=== PATIENT | female | born 1945 | race Caucasian/White ===

== ENCOUNTER 2021-01-02 13:33 | Inpatient (IN) ==
[2021-01-02] MEDS ORDERED: SODIUM CHLORIDE 0.9% 1,000 ML IV STA ×2 (15:07→18:09)
[2021-01-02 15:29] LABS: Basophils % 0.1 % (0.0-0.8); Hematocrit 40.1 VOL% (35.7-47.0); Hemoglobin 13.4 GM/DL (12.0-16.0); Immature Granulocytes % 0.7 %; Immature Granulocytes Absolute 0.14 #; Lymphocytes # 0.6 10*3/uL (1.4-4.0); Lymphocytes % 2.8 % (21.3-54.2); Mean Corpuscular HGB Conc 33.4 GM/DL (32-36); Mean Corpuscular Volume 100.3 FL (87-102); Mean Platelet Volume 13.1 FL (9.6-12.0); Neutrophils % 92.4 % (38.7-73.9); Platelet Count 158 T/CUMM (130-400); Red Cell Distribution Width 14.8 % (9.3-17.3); White Blood Count 20.6 T/CUMM (4-12)
[2021-01-02 15:41] LABS: PT Patient Result 21.2 SECS (10.5-12.0)
[2021-01-02 15:57] LABS: Bilirubin,Total 0.4 MG/DL (0.20-1.00); Osmolality,Calculated 293.8 MOS/KG (273-304); Potassium 3.4 MMOL/L (3.5-5.1); Thyroid Stimulating Hormone 1.48 uIU/ml (0.358-3.74); Total Protein 7.3 G/DL (6.4-8.2)
[2021-01-02 16:03] LABS: Band Neutrophils 15 % (0-10); Lymphocytes 5 % (20-55); Metamyelocytes 1 %; Segmented Neutrophils 72 % (50-85); Total Cells Counted 100
[2021-01-02 16:04] LABS: Anisocytosis 1+; Macrocytosis 1+; Platelet Estimate Normal
[2021-01-02] MEDS ORDERED: LEVOFLOXACIN INJ 750 MG/150 ML PREMIX IV STA (16:33)
[2021-01-02 16:46] LABS: Bacteria,Urine Moderate /HPF (Few); Bilirubin,Urine Negative (Negative); Blood, Urine Large mg/dL (Negative); Glucose,Urine (UA) >=500 mg/dL (Negative); Ketones,Urine Negative (Negative); Mucus,Urine Occasional /LPF (Occasional); Nitrite,Urine Negative (Negative); Protein,Urine 30 MG/DL; RBC,Urine 12 /HPF (0-4); Squamous Epithelial Cell,Urine Occasional /HPF (0-10); Urine Appearance CLOUDY (Clear); Urine Color Yellow (Yellow); Urine Specific Gravity 1.017 (1.001-1.035)
[2021-01-02] MEDS ORDERED: INSULIN REGULAR 100 UNIT/ML IV STA (16:54)
[2021-01-02] MEDS ORDERED: DEXTROSE 50% 25 GM/50 ML VIAL IV PRN ×2 (19:34)
[2021-01-02] MEDS ORDERED: GLUCAGON 1 MG VIAL IM PRN ×2 (19:34)
[2021-01-02] MEDS ORDERED: ONDANSETRON 4 MG/2 ML VIAL IV PRN (19:34)
[2021-01-02] MEDS ORDERED: LEVOFLOXACIN INJ 750 MG/150 ML PREMIX IV SCH (21:00)
[2021-01-02] MEDS: INSULIN REGULAR 100 UNIT/ML SUBCUT SCH (22:05)
[2021-01-02] MEDS: LACTATED RINGERS 1,000 ML IV SCH (22:14)
[2021-01-02] MEDS: ACETAMINOPHEN 325 MG TABLET PO PRN (23:12)
[2021-01-03 05:12] LABS: Basophils % 0.2 % (0.0-0.8); Hematocrit 33.4 VOL% (35.7-47.0); Hemoglobin 11.3 GM/DL (12.0-16.0); Immature Granulocytes % 0.9 %; Immature Granulocytes Absolute 0.17 #; Lymphocytes # 0.8 10*3/uL (1.4-4.0); Lymphocytes % 4.2 % (21.3-54.2); Mean Corpuscular HGB Conc 33.8 GM/DL (32-36); Mean Corpuscular Volume 99.4 FL (87-102); Mean Platelet Volume 12.5 FL (9.6-12.0); Monocytes % 7.2 % (1.7-12.7); Neutrophils % 87.5 % (38.7-73.9); Platelet Count 116 T/CUMM (130-400); Red Blood Count 3.36 MC/CUMM (3.8-5.5); Red Cell Distribution Width 14.7 % (9.3-17.3); White Blood Count 19.8 T/CUMM (4-12)
[2021-01-03] MEDS ORDERED: SODIUM CHLORIDE 0.9% 500 ML IV ONE (05:24)
[2021-01-03 05:32] LABS: Band Neutrophils 2 % (0-10); Hypochromasia Slight; Lymphocytes 4 % (20-55); Microcytosis Slight; Segmented Neutrophils 88 % (50-85); Total Cells Counted 100
[2021-01-03 05:48] LABS: Risk Ratio 3.18; Thyroid Stimulating Hormone 0.756 uIU/ml (0.358-3.74); VLDL Cholesterol 29.2 MG/DL
[2021-01-03 07:59] LABS: Calcium 8.9 MG/DL (8.5-10.1)
[2021-01-03] MEDS: INSULIN REGULAR 100 UNIT/ML SUBCUT SCH ×4 (09:51→21:27)
[2021-01-03] MEDS: FUROSEMIDE 40 MG TABLET PO SCH (09:51)
[2021-01-03] MEDS: allopurinoL 300 MG TABLET PO SCH (11:52)
[2021-01-03] MEDS: ACETAMINOPHEN 325 MG TABLET PO PRN (11:52)
[2021-01-03] MEDS: PANTOPRAZOLE 40 MG TABLET PO SCH (11:52)
[2021-01-03] MEDS: MEROPENEM 500 MG in SODIUM CHLORIDE 0.9% 100 ML IV SCH ×2 (13:11→17:42)
[2021-01-03] MEDS: LACTATED RINGERS 1,000 ML IV SCH ×2 (13:11)
[2021-01-03] MEDS: POTASSIUM CHLORIDE RIDER 10 MEQ/100 ML PREMIX IV PRN ×6 (14:21→22:51)
[2021-01-03] MEDS ORDERED: WARFARIN 5 MG TABLET PO SCH (17:00)
[2021-01-04] MEDS: LACTATED RINGERS 1,000 ML IV SCH ×3 (00:20→18:07)
[2021-01-04] MEDS: POTASSIUM CHLORIDE RIDER 10 MEQ/100 ML PREMIX IV PRN (00:20)
[2021-01-04] MEDS: MEROPENEM 500 MG in SODIUM CHLORIDE 0.9% 100 ML IV SCH ×3 (03:35→17:15)
[2021-01-04 07:21] LABS: Basophils # 0.1 10*3/uL (0.0-0.2); Basophils % 0.5 % (0.0-0.8); Eosinophils # 0.1 10*3/uL (0.0-0.87); Eosinophils % 0.7 % (0.00-10.9); Hematocrit 33.7 VOL% (35.7-47.0); Hemoglobin 11.4 GM/DL (12.0-16.0); Immature Granulocytes Absolute 0.11 #; Lymphocytes # 1.1 10*3/uL (1.4-4.0); Lymphocytes % 10.2 % (21.3-54.2); Mean Corpuscular HGB Conc 33.8 GM/DL (32-36); Mean Corpuscular Volume 101.2 FL (87-102); Mean Platelet Volume 13.3 FL (9.6-12.0); Monocytes % 8.9 % (1.7-12.7); Neutrophils % 78.7 % (38.7-73.9); Platelet Count 114 T/CUMM (130-400); Red Blood Count 3.33 MC/CUMM (3.8-5.5); Red Cell Distribution Width 14.9 % (9.3-17.3); White Blood Count 10.7 T/CUMM (4-12)
[2021-01-04 07:28] LABS: INR 1.3; PT Patient Result 14.6 SECS (10.5-12.0)
[2021-01-04 07:51] LABS: Calcium 9.2 MG/DL (8.5-10.1); Osmolality,Calculated 287.8 MOS/KG (273-304); Potassium 3.9 MMOL/L (3.5-5.1)
[2021-01-04] MEDS: PANTOPRAZOLE 40 MG TABLET PO SCH (09:16)
[2021-01-04] MEDS: CHOLECALCIFEROL 1,000 UNIT TABLET PO SCH (09:17)
[2021-01-04] MEDS: INSULIN REGULAR 100 UNIT/ML SUBCUT SCH ×4 (09:17→21:01)
[2021-01-04] MEDS: allopurinoL 300 MG TABLET PO SCH (09:17)
[2021-01-04] MEDS: MULTIVITAMIN (BEROCCA) TABLET PO SCH (09:17)
[2021-01-04] MEDS: FUROSEMIDE 40 MG TABLET PO SCH (09:17)
[2021-01-04] MEDS: ASPIRIN EC 81 MG TABLET PO SCH (09:17)
[2021-01-05] MEDS: LACTATED RINGERS 1,000 ML IV SCH (02:23)
[2021-01-05] MEDS: MEROPENEM 500 MG in SODIUM CHLORIDE 0.9% 100 ML IV SCH ×2 (02:23→09:32)
[2021-01-05 04:57] LABS: Basophils % 0.5 % (0.0-0.8); Eosinophils # 0.1 10*3/uL (0.0-0.87); Eosinophils % 0.9 % (0.00-10.9); Hematocrit 34.5 VOL% (35.7-47.0); Hemoglobin 11.6 GM/DL (12.0-16.0); Immature Granulocytes % 1.5 %; Immature Granulocytes Absolute 0.12 #; Lymphocytes # 1.8 10*3/uL (1.4-4.0); Lymphocytes % 22.3 % (21.3-54.2); Mean Corpuscular HGB Conc 33.6 GM/DL (32-36); Mean Corpuscular Volume 100.6 FL (87-102); Mean Platelet Volume 13.4 FL (9.6-12.0); Neutrophils % 63.8 % (38.7-73.9); Platelet Count 118 T/CUMM (130-400); Red Blood Count 3.43 MC/CUMM (3.8-5.5); Red Cell Distribution Width 14.4 % (9.3-17.3); White Blood Count 7.9 T/CUMM (4-12)
[2021-01-05 05:07] LABS: Osmolality,Calculated 280.7 MOS/KG (273-304); Potassium 3.7 MMOL/L (3.5-5.1)
[2021-01-05 05:21] LABS: INR 1.1; PT Patient Result 12.6 SECS (10.5-12.0)
[2021-01-05 05:22] LABS: Hypochromasia 1+; Microcytosis 1+; Platelet Estimate Decreased
[2021-01-05] MEDS ORDERED: MAGNESIUM SULF RIDER 2 GM/50 ML PREMIX IV PRN (07:21)
[2021-01-05 08:18] VITALS: BP 138/60
[2021-01-05] MEDS: CHOLECALCIFEROL 1,000 UNIT TABLET PO SCH (09:30)
[2021-01-05] MEDS: allopurinoL 300 MG TABLET PO SCH (09:31)
[2021-01-05] MEDS: PANTOPRAZOLE 40 MG TABLET PO SCH (09:31)
[2021-01-05] MEDS: MULTIVITAMIN (BEROCCA) TABLET PO SCH (09:31)
[2021-01-05] MEDS: ASPIRIN EC 81 MG TABLET PO SCH (09:31)
[2021-01-05] MEDS: FUROSEMIDE 40 MG TABLET PO SCH (09:31)
[2021-01-05] MEDS: INSULIN REGULAR 100 UNIT/ML SUBCUT SCH (09:32)
== END 2021-01-05 11:59 | disposition home health service (06) | DRG 871 ==
LOC: N.ED 13:33 → N.EDINP 19:34 → N.TELES 22:15
PROVIDERS: ADMIT Hospitalist; ATTEND Hospitalist